=== PATIENT | male | born 1975 | race Caucasian/White ===

== ENCOUNTER 2016-09-03 17:49 | Emergency (ER) | payer OTHER, BC ==
[~2016-09-03] VITALS: Ht 193 cm; Wt 104.4 kg
[~2016-09-03 17:49] MED LIST: NO HOME MEDS
[2016-09-03] MEDS ORDERED: NAPROSYN500 MG PO (18:40)
[2016-09-03] MEDS ORDERED: ULTRAM50 MG PO (18:40)
[2016-09-03 18:50] VITALS: BP 128/80
== END 2016-09-03 19:05 | disposition home or self-care (01) ==
LOC: EME 17:49
DX: S86.811A Strain of other muscle(s) and tendon(s) at lower leg level, right leg, initial encounter (principal); X50.1XXA Overexertion from prolonged static or awkward postures, initial encounter; Y99.0 Civilian activity done for income or pay; Y92.149 Unspecified place in prison as the place of occurrence of the external cause
CPT/HCPCS: 99281; 99284

== ENCOUNTER 2017-04-03 08:58 | Day surgery (SDC) | payer OTHER, BC ==
[~2017-04-03] VITALS: Ht 190.5 cm; Wt 106.6 kg
[~2017-04-03 08:58] MED LIST changes: +BUSPAR10 MG PO; +ENDOCET 5-3251 EACH PO; +LYRICA75 MG PO; +NAPROSYN500 MG PO; +ULTRAM50 MG PO
== END 2017-04-03 10:40 | disposition home or self-care (01) ==
LOC: PAIN 08:58 → SDC 09:45 → PAIN 10:40
DX: G57.01 Lesion of sciatic nerve, right lower limb (principal); M47.26 Other spondylosis with radiculopathy, lumbar region; F41.9 Anxiety disorder, unspecified
CPT/HCPCS: J1030; J2250; J3010; S0020

== ENCOUNTER 2017-05-23 10:57 | Day surgery (SDC) | payer BC ==
[~2017-05-23] VITALS: Ht 190.5 cm; Wt 108.9 kg
[~2017-05-23 10:57] MED LIST changes: +LYRICA100 MG PO; -LYRICA75 MG PO
== END 2017-05-23 13:05 | disposition home or self-care (01) ==
LOC: PAIN 10:57 → SDC 11:45 → PAIN 13:05
DX: G57.01 Lesion of sciatic nerve, right lower limb (principal); F43.10 Post-traumatic stress disorder, unspecified
CPT/HCPCS: J1030; J2250; J3010; S0020